=== PATIENT | male | born 1990 | race Caucasian/White ===

== ENCOUNTER 2018-02-09 17:46 | Emergency (ER) | payer OTHER ==
[~2018-02-09] VITALS: Ht 182.9 cm; Wt 140.6 kg
[~2018-02-09 17:46] MED LIST: BUPROPION75 MG PO; CLINDAMYCIN HC300 M1 PO; METHADONE H5 MG/5 ML PO; METHADONE PO; MIXED AMPHETAMI20 M1 PO; SEROQUEL 100MG100 MG PO; [UNRECOGNIZED DRUG - OTHER] PO
[2018-02-09] MEDS ORDERED: METHADONE10 MG/1 M2 PO (22:38)
[2018-02-09] MEDS ORDERED: PROAIR HFA8.5 GM INH (22:39)
[2018-02-09] MEDS ORDERED: BACTRIM DS TAB1 EACH PO (22:45)
[2018-02-09] MEDS ORDERED: AMOXICILLIN875 M1 PO (22:45)
[2018-02-09] MEDS ORDERED: PREDNISONE50 M1 PO (22:45)
== END 2018-02-09 18:39 | disposition admitted as inpatient to this hospital (09) ==
LOC: ERH 17:46
DX: R22.42 Localized swelling, mass and lump, left lower limb (principal); H91.93 Unspecified hearing loss, bilateral